=== PATIENT | female | born 1990 | race American Indian/Alaskan Native ===

== ENCOUNTER 2018-06-16 06:39 | Emergency (ER) | payer MEDICAID ==
[2018-06-16 07:15] VITALS: BP 122/84
--- NOTE | 2018-06-16 08:08 | Emergency Department Report ---
ED ENT HPI - General Chief complaint: Sore Throat Stated complaint: THROAT, HEAD,EYE PAIN Source: patient Mode of arrival: Ambulatory Limitations: No Limitations - History of Present Illness Initial comments: 15-year-old -[place] female who presents with sore throat and bilateral ear pain for 3 weeks. Patient states she has taken [id number] cold and flu medication with minimal improvement of her symptoms. She also reports sweating upon waking, cough, and headache. Family members had upper respiratory infections 3 weeks ago which she thinks she caught something from them. She denies body aches, chest pain, shortness of breath, wheeze, nausea or vomiting. MD complaint: sore throat, ear pain Onset/Timin -: week(s) Location: R ear, L ear, throat Severity: moderate Severity scale (0 -10): 7 Quality: aching Consistency: constant Improves with: none Worsens with: swallowing, eating Context- Ear: recent illness Associated Symptoms: cough, pain with swallowing, sore throat. denies: fever, gum swelling, toothache, tinnitus, hearing loss, discharge from ear, rhinorrhea - Related Data Previous Rx's Medication Instructions Recorded Last Taken Type Benzonatate [Tessalon Perle] 100 mg PO TID PRN #30 capsule 06/16/18 Unknown Rx Cetirizine HCl [Zyrtec] 10 mg PO DAILY #30 tablet 06/16/18 Unknown Rx Fluticasone [Flonase] 1 spray NS QDAY #1 bottle 06/16/18 Unknown Rx Guaifenesin/Dm/Pseudoephedrine 1 each PO BID #14 tablet 06/16/18 Unknown Rx [Desgen Dm Tablet] Allergies Allergy/AdvReac Type Severity Reaction Status Date / Time No Known Allergies Allergy Unverified 06/16/18 07:12 ED Dental HPI - General Chief complaint: Sore Throat Stated complaint: THROAT, HEAD,EYE PAIN Source: patient Mode of arrival: Ambulatory Limitations: No Limitations - Related Data Previous Rx's Medication Instructions Recorded Last Taken Type Benzonatate [Tessalon Perle] 100 mg PO TID PRN #30 capsule 06/16/18 Unknown Rx Cetirizine HCl [Zyrtec] 10 mg PO DAILY #30 tablet 06/16/18 Unknown Rx Fluticasone [Flonase] 1 spray NS QDAY #1 bottle 06/16/18 Unknown Rx Guaifenesin/Dm/Pseudoephedrine 1 each PO BID #14 tablet 06/16/18 Unknown Rx [Desgen Dm Tablet] Allergies Allergy/AdvReac Type Severity Reaction Status Date / Time No Known Allergies Allergy Unverified 06/16/18 07:12 ED Review of Systems ROS: Stated complaint: THROAT, HEAD,EYE PAIN Other details as noted in HPI Constitutional: denies: chills, fever Eyes: eye discharge ENT: ear pain (bilateral), throat pain, congestion. denies: dental pain, hearing loss, epistaxis Respiratory: cough. denies: shortness of breath, wheezing Cardiovascular: denies: chest pain, palpitations Gastrointestinal: denies: abdominal pain, nausea, diarrhea Musculoskeletal: denies: myalgia Neurological: headache. denies: weakness, paresthesias Psychiatric: denies: anxiety, depression ED Past Medical Hx - Past Medical History Previous Medical History?: No - Surgical History Past Surgical History?: No - Social History Smoking Status: Current Every Day Smoker Substance Use Type: None - Medications Home Medications: Home Medications Medication Instructions Recorded Confirmed Last Taken Type Benzonatate [Tessalon Perle] 100 mg PO TID PRN #30 capsule 06/16/18 Unknown Rx Cetirizine HCl [Zyrtec] 10 mg PO DAILY #30 tablet 06/16/18 Unknown Rx Fluticasone [Flonase] 1 spray NS QDAY #1 bottle 06/16/18 Unknown Rx Guaifenesin/Dm/Pseudoephedrine 1 each PO BID #14 tablet 06/16/18 Unknown Rx [Desgen Dm Tablet] ED Physical Exam - General Limitations: No Limitations General appearance: alert, in no apparent distress, obese (morbidly obese) - ENT ENT exam: Present: mucous membranes moist, TM's normal bilaterally, normal external ear exam, other (turbinates are congested with clear discharge, negative frontal or maxillary sinus tenderness). Absent: normal orophraynx (erythematous posterior pharynx, uvula midline without exudate) - Neck Neck exam: Present: normal inspection. Absent: lymphadenopathy - Respiratory Respiratory exam: Present: normal lung sounds bilaterally. Absent: respiratory distress, wheezes, rales, rhonchi, stridor, accessory muscle use - Cardiovascular Cardiovascular Exam: Present: regular rate, normal rhythm. Absent: systolic murmur, diastolic murmur, rubs, gallop - GI/Abdominal GI/Abdominal exam: Present: soft, normal bowel sounds. Absent: distended, tenderness, guarding, rebound, rigid, organomegaly, mass - Neurological Exam Neurological exam: Present: alert, oriented X3, normal gait - Psychiatric Psychiatric exam: Present: normal affect, normal mood - Skin Skin exam: Present: warm, dry, intact, normal color. Absent: rash ED Course Vital Signs 06/16/18 07:12 Temperature 98.0 F Pulse Rate 87 Respiratory 16 Rate Blood Pressure 122/84 O2 Sat by Pulse 98 Oximetry ED Medical Decision Making - Lab Data Lab Results 06/16/18 Range/Units Unknown Group A Strep Rapid Negative (Negative) - Medical Decision Making 28 y.o. female that presents with URI symptoms. Patient examined by me and stable. No distress noted. Vitals normal. Rapid strep obtained and negative. Physical fundus is felt the pull of upper respiratory infection and rhinitis. Reviewed results with patient. Start benzonatate, Flonase, Mucinex DM, and c etirizine. Discharged home stable. Encouraged to do supportive care for URI. Follow up with Primary Care Provider in 2-3 days. Critical care attestation.: If time is entered above; I have spent that time in minutes in the direct care of this critically ill patient, excluding procedure time. ED Disposition Clinical Impression: Upper respiratory infection Qualifiers: URI type: acute nasopharyngitis (common cold) Qualified Code(s): J00 - Acute nasopharyngitis [common cold] Rhinitis Qualifiers: Rhinitis type: acute Qualified Code(s): J00 - Acute nasopharyngitis [common cold] Disposition: - TO HOME OR SELFCARE Is pt being admited?: No Does the pt Need Aspirin: No Condition: Stable Instructions: Cold Symptoms (ED), Upper Respiratory Infection (ED), Allergic Rhinitis (ED) Additional Instructions: Increase fluid intake and rest. Wash hands frequently. Continue taking Tylenol or ibuprofen to control fever. F/U with Primary Care Provider. Return to ER if fever, SOB, or difficulty breathing after 48 hours of supportive care. Prescriptions: Benzonatate [Tessalon Perle] 100 mg PO TID PRN #30 capsule PRN Reason: Cough Cetirizine HCl [Zyrtec] 10 mg PO DAILY #30 tablet Fluticasone [Flonase] 1 spray NS QDAY #1 bottle Guaifenesin/Dm/Pseudoephedrine [Desgen Dm Tablet] 1 each PO BID #14 tablet Referrals: YUDITH MUELLER MD [Primary Care Provider] - 3-5 Days Forms: Work/School Release Form(ED) Time of Disposition: 08:36
[2018-06-16] MEDS ORDERED: IBUPROFEN PO ONE (08:30)
[2018-06-16] MEDS ORDERED: TESSALON PERLES PO ONE (08:30)
== END 2018-06-16 09:02 | disposition home or self-care (01) ==
LOC: ED 06:39
DX: J00 Acute nasopharyngitis [common cold] (principal); F17.200 Nicotine dependence, unspecified, uncomplicated
CPT/HCPCS: 87116; 87430; 99283

== ENCOUNTER 2018-12-25 12:15 | Emergency (ER) | payer MEDICAID ==
[2018-12-25 12:20] VITALS: BP 145/87
--- NOTE | 2018-12-25 12:20 | Event Note ---
ED Screening Note Date of service: 12/25/18 Time: 12:19 ED Screening Note: rash on left wrist times 4 days. This initial assessment/diagnostic orders/clinical plan/treatment(s) is/are subject to change based on patients health status, clinical progression and re- assessment by fellow clinical providers in the ED. Further treatment and workup at subsequent clinical providers discretion. Patient/guardian urged not to elope from the ED as their condition may be serious if not clinically assessed and managed. Initial orders include:
--- NOTE | 2018-12-25 14:08 | Emergency Department Report ---
HPI - General Chief Complaint: Skin Rash Time Seen by Provider: 12/25/18 13:42 - HPI HPI: 28-year-old Afro-Maldivian female presents to the emergency department with a complaint of a 2-3 day history of a rash to the left wrist. She says it is very itchy but has become more painful recently and is causing pain to shoot up her left arm. The patient says that she does spend some time outdoors but has not been in any forrested or wooded areas. The patient also says that she has a job at [employer] where she is in constant interaction and contact with people throughout the day. She denies any past medical history. She has not taken anything for her symptoms prior to arrival. ED Past Medical Hx - Past Medical History Previous Medical History?: No - Surgical History Past Surgical History?: No - Social History Smoking Status: Current Every Day Smoker Substance Use Type: Alcohol - Medications Home Medications: Home Medications Medication Instructions Recorded Confirmed Last Taken Type Benzonatate [Tessalon Perle] 100 mg PO TID PRN #30 capsule 06/16/18 Unknown Rx Cetirizine HCl [Zyrtec 10mg tab] 10 mg PO DAILY #30 tablet 06/16/18 Unknown Rx Fluticasone [Flonase] 1 spray NS QDAY #1 bottle 06/16/18 Unknown Rx Guaifenesin/Dm/Pseudoephedrine 1 each PO BID #14 tablet 06/16/18 Unknown Rx [Desgen Dm Tablet] Permethrin 5% [Acticin 5% CREAM] 1 applicatio TP ONCE #1 tube 12/25/18 Unknown Rx Sulfamethoxazole/Trimethoprim 1 each PO BID #14 tablet 12/25/18 Unknown Rx [Bactrim DS TAB] ED Review of Systems ROS: Stated complaint: LT ARM RASH Other details as noted in HPI Comment: All other systems reviewed and negative Constitutional: denies: chills, fever ENT: denies: ear pain, throat pain Respiratory: denies: cough, shortness of breath Skin: rash, lesions, pruritus Neurological: denies: numbness, paresthesias Physical Exam - Physical Exam Vital Signs: Vital Signs 12/25/18 12:19 Temperature 98.3 F Pulse Rate 85 Respiratory 18 Rate Blood Pressure 145/87 O2 Sat by Pulse 99 Oximetry Physical Exam: GENERAL: The patient is well-developed well-nourished. HENT: Normocephalic. Atraumatic. Patient has moist mucous membranes. EYES: Extraocular motions are intact. NECK: Supple. Trachea is midline. SKIN: The patient has a grouped area of vesicles and pustules to the volar left wrist. There is some small amount of crusting in this area. No current bleeding, weeping or drainage. NEURO: The patient is awake, alert, and oriented. The patient is cooperative. The patient has no focal neurologic deficits. The patient has normal speech. MUSCULOSKELETAL: There is no tenderness or deformity. There is no evidence of acute injury. ED Course Vital Signs 12/25/18 12:19 Temperature 98.3 F Pulse Rate 85 Respiratory 18 Rate Blood Pressure 145/87 O2 Sat by Pulse 99 Oximetry ED Medical Decision Making - Medical Decision Making This patient presents to the emergency department with an acute rash to the left wrist that has been going on over the past 2-3 days. She says that it is extremely itchy and has gotten slightly painful recently. The area has grouped vesicles and pustules with a little bit of crusting. No bleeding, weeping or drainage. Vital signs stable and being afebrile. The patient's differential includes contact dermatitis, plant dermatitis, scabies, cellulitis versus other. The patient will be placed on permethrin and given some antibiotics to cross cover her given the differential. She has also been given some referrals for local gang rider. She will return to the ER with any worsening of her sympt oms or any acute distress. - Differential Diagnosis scabies, contact dermatitis, dermatitis, cellulitis Critical Care Time: No Critical care attestation.: If time is entered above; I have spent that time in minutes in the direct care of this critically ill patient, excluding procedure time. ED Disposition Clinical Impression: Dermatitis, Rash and nonspecific skin eruption Disposition: DC-01 TO HOME OR SELFCARE Is pt being admited?: No Condition: Stable Instructions: Contact Dermatitis (ED), Scabies (ED), Acute Rash (ED) Additional Instructions: Please follow up with a gang rider in the next few days. I'm giving you a referral to two local dermatologists, Dr. Gongora and Dr. major. Return to the emergency Department with any worsening of her symptoms or any acute distress. Prescriptions: Permethrin 5% [Acticin 5% CREAM] 1 applicatio TP ONCE #1 tube Sulfamethoxazole/Trimethoprim [Bactrim DS TAB] 1 each PO BID #14 tablet Referrals: GRANT MAJOR MD [Staff Physician] - Eric Garcia [Other] - MAURI Time of Disposition: 14:14
== END 2018-12-25 14:20 | disposition home or self-care (01) ==
LOC: ED 12:15
DX: L30.9 Dermatitis, unspecified (principal); F17.200 Nicotine dependence, unspecified, uncomplicated; Z79.899 Other long term (current) drug therapy
CPT/HCPCS: 99282